=== PATIENT | female | born 1930 | race Caucasian/White ===

== ENCOUNTER 2022-02-15 16:08 | Observation (INO) | payer MEDICARE, OTHER ==
[2022-02-15] MEDS ORDERED: Sodium Chloride 0.9% 10 ML Syringe FLUSH PRN (17:10)
[2022-02-15] MEDS ORDERED: Sodium Chloride 0.9% 1,000 ML IV SCH (17:45)
[2022-02-15 17:47] LABS: ESTIMATED GFR 54 mL/min (>60)
[2022-02-15] MEDS ORDERED: Ondansetron 4 MG/2 ML SDV IV PRN (19:24)
[2022-02-15] MEDS ORDERED: Pantoprazole 40 MG Vial IV SCH (19:24)
[2022-02-15] MEDS ORDERED: Ondansetron 4 MG Tab.DIS PO PRN (19:24)
[2022-02-15] MEDS: Sodium Chloride 0.9% 1,000 ML IV SCH (19:47)
[2022-02-15] MEDS: Pantoprazole 40 MG Vial IV SCH (21:23)
[2022-02-15] MEDS ORDERED: Acetaminophen Soln 650 MG/20.3 ML UD Cup PO PRN (23:18)
[2022-02-16] MEDS: Sodium Chloride 0.9% 1,000 ML IV SCH (06:25)
[2022-02-16] MEDS ORDERED: Metoprolol Tartrate 25 MG Tab PO SCH (14:15)
[2022-02-16] MEDS: Potassium Chloride 20 MEQ Tab.ER PO SCH ×2 (17:02→22:07)
[2022-02-16] MEDS: Pantoprazole 40 MG Vial IV SCH (19:37)
[2022-02-16] MEDS ORDERED: Furosemide 40 MG Tab PO SCH (21:00)
[2022-02-17] MEDS: Potassium Chloride 20 MEQ Tab.ER PO SCH ×2 (08:14→10:09)
[2022-02-17] MEDS ORDERED: Aspirin 325 MG Tab.EC PO SCH (09:00)
[2022-02-17] MEDS ORDERED: ASPIRIN 325 MG PO SCH (09:00)
[2022-02-17] MEDS ORDERED: Loratadine 10 MG Tab PO SCH (09:00)
[2022-02-17] MEDS ORDERED: FUROSEMIDE 40 MG PO SCH ×2 (09:00→12:00)
[2022-02-17] MEDS ORDERED: CYCLOBENZAPRINE 10 MG PO SCH ×2 (09:00→21:00)
[2022-02-17] MEDS ORDERED: Cyclobenzaprine 10 MG Tab PO SCH (09:00)
[2022-02-17] MEDS ORDERED: METOPROLOL TARTRATE 25 MG PO SCH (09:00)
== END 2022-02-17 14:49 | disposition home or self-care (01) ==
LOC: JP.ED 16:08 → JP.MS 18:48
PROVIDERS: ADMIT Internal Medicine; ATTEND Hospitalist
DX: R13.10 Dysphagia, unspecified (principal); J02.9 Acute pharyngitis, unspecified; U07.1 COVID-19; T45.8X5A Adverse effect of other primarily systemic and hematological agents, initial encounter; E78.5 Hyperlipidemia, unspecified; I12.9 Hypertensive chronic kidney disease with stage 1 through stage 4 chronic kidney disease, or unspecified chronic kidney disease; N18.31 Chronic kidney disease, stage 3a; M81.0 Age-related osteoporosis without current pathological fracture; M19.90 Unspecified osteoarthritis, unspecified site; Z79.82 Long term (current) use of aspirin; Z88.0 Allergy status to penicillin; Z88.8 Allergy status to other drugs, medicaments and biological substances; Z79.899 Other long term (current) drug therapy; Z87.19 Personal history of other diseases of the digestive system
CPT/HCPCS: 36415; 80048; 80053; 83735; 85025; 85027; 93005; 97116; 97162; 97530; 97535; A9270; C9113; J3490; J7030; U0002; 96360; 96361; 99285-25

== ENCOUNTER 2022-02-21 18:59 | Emergency (ER) | payer MEDICARE, OTHER | END 2022-02-21 21:34 | disposition home or self-care (01) | LOC: JP.ED 18:59 | DX: N95.1 Menopausal and female climacteric states (principal); Z88.0 Allergy status to penicillin; Z91.048 Other nonmedicinal substance allergy status; Z79.899 Other long term (current) drug therapy; Z79.82 Long term (current) use of aspirin; Z90.49 Acquired absence of other specified parts of digestive tract; Z90.710 Acquired absence of both cervix and uterus | CPT/HCPCS: 36415; 80048; 84443; 85025; 99284 ==